=== PATIENT | female | born 1985 | race Caucasian/White ===

== ENCOUNTER 2018-10-01 03:01 | Emergency (ER) | payer OTHER ==
[~2018-10-01] VITALS: Ht 162.6 cm; Wt 77.1 kg
[2018-10-01] MEDS ORDERED: ORPHENADRINE CITRATE 60 MG/2 ML VIAL. IM ONE (04:15)
[2018-10-01] MEDS ORDERED: IBUPROFEN 200 MG TABLET. PO ONE (04:15)
[2018-10-01] MEDS ORDERED: NEOMY/BACITR/POLYMYXIN OINT PACKET. TP ONE (04:30)
[2018-10-01] MEDS ORDERED: ORPH100T PO (04:50)
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
[2018-10-01 05:12] VITALS: BP 107/57
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
== END 2018-10-01 05:13 | disposition home or self-care (01) ==
LOC: ER 03:01
DX: S60.112A Contusion of left thumb with damage to nail, initial encounter (principal); S60.222A Contusion of left hand, initial encounter; V49.49XA Driver injured in collision with other motor vehicles in traffic accident, initial encounter; J45.909 Unspecified asthma, uncomplicated; Y92.488 Other paved roadways as the place of occurrence of the external cause; Y93.89 Activity, other specified; Y99.8 Other external cause status
CPT/HCPCS: 73130; 73562; 96372; 99284; J2360